=== PATIENT | male | born 1950 | race Caucasian/White ===

== ENCOUNTER → 2016-06-03 12:13 | Day surgery (SDC) | payer OTHER ==
[~2016-06-03 12:13] MED LIST: Atropine 1MG/ML INJ* 1 ML VIAL ONE; Buffered Lidocaine 1% SYRIN* 3 ML/SYR SYRINGE INTRADERM ONE; Bupivacaine 0.25% SDV* 30 ML ONE; DiMENhydriNATE IV* 50 MG/ML VIAL IV PUSH PRN; EPHEDrine (Pressors)* 50 MG/ML VIAL ONE; HYDROcodone/ACETAMIN 5-325 MG* 1 TAB ONE; HYDROcodone/ACETAMIN 5-325 MG* 1 TAB PO PRN; Lidocaine 2% PF * 5 ML VIAL ONE; Propofol* 10 MG/ML 20 ML BTL IV PUSH ONE; ceFAZolin 2 GM PREMIX(*) 2 GM/50 ML BAG IVPB ONE; fentaNYL* 50 MCG/ML 2 ML VIAL (100 MCG VIAL) IV PRN; fentaNYL* 50 MCG/ML 2 ML VIAL (100 MCG VIAL) ONE
[2016-06-03 17:14] VITALS: BP 123/77
--- NOTE | 2016-06-09 00:47 | OP ---
DATE OF OPERATION: 06/03/16 - [facility] DATE OF : 54 SURGEON: Nav Persaud MD SUPERVISOR FEED HOUSE: [facility] ANESTHESIOLOGIST: Dr. Maradiaga. ANESTHESIA: General. PRE-OP DIAGNOSES: 1. Symptomatic radiocapitellar degenerative joint disease with regrowth of the proximal radius at many years after prior radial head resection in a patient who now has an ulnar humeral fusion, left side. 2. Possible retained and symptomatic screw from the patient's ulnar humeral fusion, left side. POST-OP DIAGNOSES: 1. Symptomatic radiocapitellar degenerative joint disease with regrowth of the proximal radius at many years after prior radial head resection in a patient who now has an ulnar humeral fusion, left side. 2. Possible retained and symptomatic screw from the patient's ulnar humeral fusion, left side. OPERATIVE PROCEDURE: Left revision radial head excision. 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 He has undergone multiple surgeries including many, many years ago a left radial head excision. Several months ago, I fused the left ulnohumeral joint. He has been doing well in regards to that, but he has developed very painful click with pronation and supination. X-rays showed regrowth of the left radial head and looked line impingement at the radiocapitellar joint at the proximal and radial ulnar joints. I discussed with them that there was a chance of one of the screws from the fusion was also prominent and that was contributing to the click. We talked about risks and benefits including risk of persistent pain and clicking despite doing the surgery. He understood this but wished to proceed. ESTIMATED BLOOD LOSS: 5 mL. COMPLICATIONS: None. FINDINGS: As expected but on fluoroscopic imaging, no prominent screws were noted. DESCRIPTION OF PROCEDURE: Henry was seen in the preoperative holding area and the correct side and site were identified. He was then brought back to the operating room where he was placed supine and arm table was used. Anesthesia was induced. The arm was prepped and draped in the usual fashion and formal time -out was performed. The patient's prior lateral elbow incision was utilized. Dissection was carried down to the fascia. Full-thickness flaps were raised off the fascia. I then released the fascia and split the musculature just in the line anterior to the lateral epicondyle and extending down towards the radial shaft. The radial shaft was subluxated anteriorly. The anatomy was somewhat distorted. It took quite some time but I was able to dissect through the scar tissue and musculature taking care to make sure damage the posterior interosseous nerve. I then released the subfascial layer and was left to the annular ligament. Ultimately, I was able to identify the radial shaft after excising quite a bit of scar tissue in the area of that radiocapitellar joint. There was a large amount of bony regrowth at the area of the prior radial head resection. This was all subluxated anteriorly and was grinding on the anterior aspect of what was left of the capitellum and end of the distal humerus. At this point, I placed some Hohmann retractors about the radial shaft and then used a sagittal saw to perform the revision radial head excision. I then went ahead and pronated and supinated the arm. There was still just little bit of a click and so I took up another 2 mm proximal radius. At this point, I was very satisfied with the radial head excision; and, given the extensive amount of scar tissue, I did not want to extend this more distally as I was concerned that I would not be able to adequately visualize and protect the posterior interosseous nerve. I then took the mini C-arm and fluoroscopically imaged the elbow in multiple planes. I could not identify any screws. It seemed like they were prominent and will be a source of impingement with the remaining proximal radial shaft. I therefore irrigated the wound. I closed the deeper layers with some 0 Vicryl suture. The skin was approximated with some 3-0 Polysorb suture and closed with some 4-0 nylon suture. The wound was then dressed with Xeroform, 4x4s, sterile Webril, and Kristopher bandage. He was then awoken up and taken to the recovery room in stable condition. [id number]/[facility] #: [id number] JADEN
== END | disposition home or self-care (01) ==
LOC: OREAST 12:13
PROVIDERS: ATTEND Orthopaedic Surgery Hand Surgery
DX: M19.122 Post-traumatic osteoarthritis, left elbow (principal); I10 Essential (primary) hypertension
CPT/HCPCS: 88304; 88311; J0461; J0690; J2704; J3010

== ENCOUNTER 2016-08-19 14:30 | Emergency (ER) | payer OTHER ==
[2016-08-19 14:50] VITALS: BP 147/93
[2016-08-19] MEDS ORDERED: Ketorolac INJ* 60 MG/2 ML VIAL ONE (15:35)
[2016-08-19] MEDS ORDERED: Ketorolac INJ* 60 MG/2 ML VIAL IM ONE (15:39)
--- NOTE | 2016-08-19 16:39 | ED ---
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 Patient was walking when his knee gave out causing him to fall and land on his left arm. Patient has had multiple surgeries on his elbow and just underwent an elbow fusion [address] Persaud. Patient's left elbow is fused at 65 degrees and has limited ROM due to this. Patient complains of some numbness in his hand and pain in his left forearm and elbow. Patient states his arm was "flopping around". Arm is wrapped with wood splint and kerlex. EMS was called however patient drove himself in. Is able to move his fingers. Denies any laceration or open fracture. Denies hitting his head, LOC or any other injuries. Admits to some swelling. Did not hit head and no LOC. - History of Current Complaint Chief Complaint: EDExtremityUpper Stated Complaint: POSSIBLE BROKEN ARM Time Seen by Provider: 08/19/16 15:18 Hx Obtained From: Patient Mechanism Of Injury: Fall From A Standing Position Onset/Duration: Started Hours Ago, Traumatic Timing: Constant Severity Initially: Moderate Severity Currently: Moderate Pain Location: Elbow - left, Forearm Character: Aching, Throbbing Aggravating Factor(s): Movement, Lifting Alleviating Factor(s): Rest, Other - splint Associated Signs & Symptoms: Positive: Swelling Related History: Dominant Hand Right, Dominant Hand Left - before injuries and surgeries, now has become right handed - Allergies/Home Medications Allergies/Adverse Reactions: Allergies Allergy/AdvReac Type Severity Reaction Status Date / Time No Known Allergies Allergy Verified 05/27/16 11:58 PMH/Surg Hx/FS Hx/Imm Hx Endocrine/Hematology History: Reports: Hx Anemia Cardiovascular History: Denies: Hx Hypertension Respiratory History: Reports: Hx Pulmonary 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- FILTER PLACED RIGHT [id number] SINCE GI History: Reports: Hx Gastroesophageal Reflux Disease Musculoskeletal History: Reports: Hx Arthritis - LEFT SHOULDER, ELBOW- RIGHT ARM , KNEES ANKLES, NECK Sensory History: Reports: Hx Contacts or Glasses - READING GLASSES Denies: Hx Hearing Aid Opthamlomology History: Reports: Hx Contacts or Glasses - READING GLASSES Psychiatric History: Reports: Hx Anxiety, Hx Depression - ON MEDICATION FOR, Other Psychiatric Issues/Disorders - HX OF NERVOUS BREAKDOWN 12 YEARS AGO - Surgical History Surgery Procedure, Year, and Place: [id number] ELBOW SURGERIES X 27, LAST ONE [facility]. 2014-RIGHT KNEE REPLACED-[place]. 2013-LEFT KNEE REPLACED- [facility]. 1993-LEFT ANKLE TENDON REPAIR, [place]. 2002 GASTRIC BYPASS, [place]. UMBILICAL HERNIA REPAIR X 5. TONSILLECTOMY A [facility],. 2002 LAPAROSCOPIC CHOLECYSTECTOMY, [place]. 2016 LEFT ELBOW FUSION, [facility] Hx Anesthesia Reactions: No - Immunization History Immunizations Up to Date: Yes Infectious Disease History: Denies: Traveled Outside the [place] in Last 30 Days - Family History Known Family History: Positive: None - Social History Alcohol Use: None Substance Use Type: Reports: None Smoking Status (MU): Never Smoked Tobacco Review of Systems Constitutional: Negative Cardiovascular: Negative Respiratory: Negative Positive: Arthralgia, Myalgia, Decreased ROM, Edema - left arm Skin: Negative Neurological: Negative Psychological: Normal All Other Systems Reviewed And Are Negative: Yes Physical Exam Triage Information Reviewed: Yes Vital Signs On Initial Exam: Initial Vitals Temp Pulse Resp BP Pulse Ox 97.9 F 69 18 147/93 97 08/19/16 14:45 08/19/16 14:45 08/19/16 14:45 08/19/16 14:45 08/19/16 14:45 Vital Signs Reviewed: Yes Appearance: Positive: Well-Appearing, Well-Nourished, Pain Distress - moderate when moving left arm Skin: Positive: Warm, Skin Color Reflects Adequate Perfusion, Dry, Other - edema noted at left elbow and proximal forearm, no open wounds or ecchymosis noted.. Negative: Mass @ Head/Face: Positive: Normal Head/Face Inspection Eyes: Positive: Normal, EOMI, [place], Conjunctiva Clear ENT: Positive: Normal ENT inspection, Hearing grossly normal Neck: Positive: Supple, Nontender, No Lymphadenopathy Respiratory/Lung Sounds: Positive: Clear to Auscultation, Breath Sounds Present Cardiovascular: Positive: Normal, RRR, Pulses are Symmetrical in both Upper and Lower Extremities - 2+ radial bilateral Bowel Sounds: Positive: Present Musculoskeletal: Positive: Limited @ - ROM left arm due to fusion and present injury at elbow and wrist. can only keep arm flexed at 65 degrees. no internal or external rotation due to patient's chronic position of fusion. Full ROM of fingers., Pain @ - left elbow and proximal lef forearm, along withe edema, Edema Left - at elbow/ proximal forearm, posterior Neurological: Positive: Normal, Sensory/Motor Intact - sensation decreased when compared to right but patient is able to feel, ROM normal of fingers, Alert, Oriented to Person Place, Time, CN Intact II-III, Reflexes Intact - left arm reflexed not tested, NV Bundle Intact Distally, Normal Gait Psychiatric: Positive: Normal Procedures - Splinting Location: left arm Hand-Made Type: plaster Splint: posterior Pre-Proc Neuro Vasc Exam: normal Post-Proc Neuro Vasc Exam: normal Diagnostics - Vital Signs Vital Signs Temp Pulse Resp BP Pulse Ox 08/19/16 14:45 97.9 F 69 18 147/93 97 - Laboratory Lab Statement: Any lab studies that have been ordered have been reviewed, and results considered in the medical decision making process. - Radiology left forearm Xray Interpretation: No Acute Changes - OSTEOPENIA. POST SURGICAL CHANGE. NO ACUTE OSSEOUS INJURY. IF SYMPTOMS PERSIST, RECOMMEND REPEAT IMAGING Radiology Interpretation Completed By: Radiologist left humerous Xray Interpretation: Positive (See Comments) - THERE HAS BEEN INTERVAL DEVELOPMENT OF A PERIPROSTHETIC FRACTURE OF THE PROXIMAL LEFT ULNA. Radiology Interpretation Completed By: Radiologist left elbow Xray Interpretation: Positive (See Comments) - THERE HAS BEEN INTERVAL DEVELOPMENT OF A PERIPROSTHETIC FRACTURE OF THE PROXIMAL LEFT ULNA. Radiology Interpretation Completed By: Radiologist Re-Evaluation - Re-Evaluation First Eval Re-Evaluation Time: 16:30 Change: Improved - had relief from toradol Course/Dx - Course Course Of Treatment: X-ray of left arm obtained and positive for fracture of proximal ulna. Fusion intact. Patient given toradol for pain management. Spoke with Dr poon at 4:49/5:05 who stated to splint and patient will be seen in office tomorrow for further evaluation. Posterior and sugar tong splint applied without complication. Patient denied sling due to position of arm. Due to fusion of elbow patient is unable to rotate forearm and flex past 65 degrees. Splint was applied in this position. Aware of worsening signs and symptoms and to return if splint becomes to tight. Elevate, ibuprofen and follow up. - Diagnoses Differential Diagnosis/HQI/PQRI: Positive: Fracture (Closed), Strain, Sprain, Other - surgical fusion complication after fall Provider Diagnoses: Fracture of left proximal ulna - Physician Notifications Discussed Care Of Patient With: Dr Poon Time Discussed With Above Provider: 17:00 Instructed by Provider To: Have Pt Call For Appt. - will be seen tomorrow in office 08/19/16. Splint until then Discharge - Discharge Plan Condition: Stable Disposition: HOME Patient Education Materials: Arm Fracture in Adults (ED) Referrals: Gasper IGLESIAS,Ronald Goddard [Primary Care Provider] - Jasvir Poon MD [Medical Doctor] - Additional Instructions: Take ibuprofen for pain. Elevate your arm to decrease swelling. If pain increases or worsen or splint becomes to tight please return to ED. Follow up with orthopedics tomorrow morning.
--- NOTE | 2016-08-19 17:07 | RAD ---
HISTORY: Fall, injury, recent fusion COMPARISONS: June 15, 2016 VIEWS: 2, Frontal internal rotation and external rotation views of the left humerus FINDINGS: BONE DENSITY: There is diffuse osteopenia. BONES: The patient is status post internal fixation of the distal humerus and proximal ulna. There is no hardware failure or osteolysis. JOINTS: There is osteoarthritis of the AC joint. The patient is status post fusion across the elbow ALIGNMENT: There is no dislocation. SOFT TISSUES: Unremarkable. OTHER FINDINGS: None. IMPRESSION: OSTEOPENIA. POST SURGICAL CHANGE. NO ACUTE OSSEOUS INJURY. IF SYMPTOMS PERSIST, RECOMMEND REPEAT IMAGING
--- NOTE | 2016-08-19 17:09 | RAD ---
HISTORY: Fall, injury, left forearm, recent fusion COMPARISONS: June 07, 2016 VIEWS: 2, Frontal and lateral views of the left forearm FINDINGS: BONE DENSITY: There is diffuse osteopenia. BONES: The patient is status post fusion across the elbow. There is a periprosthetic fracture of the proximal ulnar diaphysis that is new compared to the previous examination with minimal radial displacement JOINTS: The patient is status post across the elbow. 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 SOFT TISSUES: Unremarkable. OTHER FINDINGS: None. IMPRESSION: THERE HAS BEEN INTERVAL DEVELOPMENT OF A PERIPROSTHETIC FRACTURE OF THE PROXIMAL LEFT ULNA
--- NOTE | 2016-08-19 17:10 | RAD ---
HISTORY: Status post left elbow effusion, fall and injury COMPARISONS: June 15, 2016 VIEWS: 3, Frontal, lateral, and oblique views of the left elbow FINDINGS: BONE DENSITY: There is diffuse osteopenia. BONES: The patient is status post fusion across the elbow with a fixation plate and screws. There has been interval development of a periprosthetic fracture of the proximal left ulna with anterior and radial displacement JOINTS: There is no arthropathy. ALIGNMENT: There is no dislocation. SOFT TISSUES: Unremarkable. OTHER FINDINGS: None. IMPRESSION: THERE HAS BEEN INTERVAL DEVELOPMENT OF A PERIPROSTHETIC FRACTURE OF THE PROXIMAL LEFT ULNA.
== END 2016-08-19 18:32 | disposition home or self-care (01) ==
LOC: ED 14:30
DX: S52.002A Unspecified fracture of upper end of left ulna, initial encounter for closed fracture (principal); W19.XXXA Unspecified fall, initial encounter; Y93.9 Activity, unspecified; Y92.9 Unspecified place or not applicable
CPT/HCPCS: 96372; 99282; J1885

== ENCOUNTER 2017-05-15 16:25 | Observation (INO) | payer OTHER ==
--- NOTE | 2017-05-15 17:20 | RAD ---
INDICATION: Headaches. Blurred vision COMPARISON: None TECHNIQUE: Noncontrast axial source images were acquired from the skull base to the vertex. FINDINGS: Ventricles/sulci: The ventricles and cisterns are normal in size and configuration for age. Brain parenchyma: There is no focal parenchymal finding, evidence of intracranial mass, or intracranial mass effect. Intracranial hemorrhage:None. Extra-axial spaces: There are no abnormal extra axial fluid collections or evidence of extra-axial mass. Calvarium: There is no calvarial fracture or other calvarial abnormality. Scalp: There is no evidence of scalp or extracalvarial soft tissue abnormality. Paranasal sinuses/mastoid: There is mucosal thickening with short air-fluid level in a right sphenoid air cell and there is mild right ethmoid sinus. Compressive thickening The remaining paranasal sinuses and mastoid air cells are clear. Other: None. IMPRESSION: No acute intracranial findings. Sinusitis with air-fluid level in one of the sphenoid air cells
[2017-05-15 17:48] LABS: EGFR Non-African American 88.3 (>60); Hematocrit 41 % (42-52); Hemoglobin 13.5 g/dl (14.0-18.0); Mean Corpuscular HGB Conc 33 g/dl (31-36); Mean Corpuscular Hemoglobin 30 pg (27-31); Mean Corpuscular Volume 89 fL (80-94); Red Blood Count 4.58 10^6/ul (4.0-5.4); Red Cell Distribution Width 14 % (10.5-15); White Blood Count 4.5 10^3/ul (3.5-10.8)
[2017-05-15 17:49] LABS: ABS Basophils 0 10^3/ul (0-0.2); ABS Eosinophils 0.2 10^3/ul (0-0.6); ABS Lymphocytes 1.6 10^3/ul (1.0-4.8); ABS Monocytes 0.4 10^3/ul (0-0.8); ABS Neutrophils 2.1 10^3/ul (1.5-7.7); ABS Nucleated RBC 0 10^3/ul; Eosinophil % 4.6 % (0-6); Lymphocyte % 36.8 % (25-47); Nucleated Red Blood Cells % 0
[2017-05-15 18:14] LABS: Platelet Count 180 10^3/ul (150-450)
[2017-05-15 18:25] LABS: INR 0.82 (0.77-1.02)
[2017-05-15] MEDS ORDERED: Iohexol 350* (CONTRAST) 500 ML MDV IV ONE (19:52)
--- NOTE | 2017-05-15 20:47 | RAD ---
INDICATION: Headaches. Visual changes. Acute and chronic sinusitis. COMPARISON: CT brain same day TECHNIQUE: Axial source images were acquired with coronal and sagittal reconstructions. CT angiographic technique was utilized with injection of 80 mL Omnipaque 350. Limited venous phase imaging was performed as well. FINDINGS: Aortic arch: There are no CT angiogram abnormalities of the arch or the great vessels arising from the arch. There are underlying atherosclerotic changes. There is vessel tortuosity with elongation of the ascending thoracic Right carotid: The common carotid artery, carotid bifurcation, extracranial portions of the internal carotid artery, carotid artery at the skull base, carotid siphon, and carotid termination appear widely patent. Left carotid:The common carotid artery, carotid bifurcation, extracranial portions of the internal carotid artery, carotid artery at the skull base, carotid siphon, and carotid termination appear widely patent. There is moderate plaque at the bifurcation but no significant stenosis. Right middle and anterior cerebral arteries: There are no CT angiographic abnormalities of the middle or anterior cerebral arteries. Left middle and anterior cerebral arteries: There are no CT angiographic abnormalities of the middle or anterior cerebral arteries Right vertebral: The CT angiographic appearance of the vertebral artery is normal. Left vertebral: The CT angiographic appearance of the vertebral artery is normal. Basilar artery: The basilar artery and basilar tip appear normal. Posterior cerebral arteries: The distal distribution of the right and left posterior cerebral arteries is normal. [place]: The CT angiographic appearance of the [place] is intact. Other: Limited venous phase imaging demonstrates no intraluminal defect within the dural sinuses Source images show no evidence of mass or adenopathy within the neck. There are no focal brain parenchymal abnormalities or abnormal areas of enhancement. There is again evidence of acute and chronic sinusitis with an air-fluid level in the right sphenoid air cell. IMPRESSION: NO CT EVIDENCE OF ANEURYSM, SIGNIFICANT STENOSIS, BRANCH OCCLUSION. ACUTE AND CHRONIC SINUSITIS. NO IDENTIFIABLE DURAL SINUS ABNORMALITY. CPT II Codes: 3100F PQRS
[2017-05-15] MEDS ORDERED: Docusate CAP* 100 MG PO PRN (21:33)
[2017-05-15] MEDS ORDERED: Al Hydrox/Mg Hydrox/Simet LIQ* 30 ML UDC PO PRN (21:33)
[2017-05-15] MEDS ORDERED: Acetaminophen TAB* 325 MG PO PRN (21:33)
[2017-05-15] MEDS ORDERED: Senna TAB PO PRN (21:33)
[2017-05-15] MEDS ORDERED: Ondansetron INJ* 2 MG/ML VIAL IV PRN (21:33)
[2017-05-15] MEDS ORDERED: traZODone TAB* 100 MG PO SCH (22:00)
[2017-05-15] MEDS: Heparin VIAL(*) 5000 UNITS/ML VIAL (FIVE THOUSAND) SUBCUT SCH (23:12)
[2017-05-15] MEDS ORDERED: oxyCODONE TAB* 5 MG TAB PO PRN (23:13)
[2017-05-15] MEDS: clonazePAM TAB(*) 0.5 MG PO SCH (23:24)
--- NOTE | 2017-05-16 00:51 | HP ---
CC: Dr. Ronald Jackman at [facility] in [place], [place] * HISTORY AND PHYSICAL: DATE OF ADMISSION: 05/15/17 TIME OF EVALUATION: 2099 CHIEF COMPLAINT: Vision changes. HISTORY OF PRESENT ILLNESS: This is a 66-year-old male with past medical history of hypertension who presented to the emergency room with acute onset of vision changes. The patient states around 9 o'clock this morning, he had a blackout vision which lasted for about 45 seconds and then he had tunnel vision that lasted for about 2 to 3 minutes. His was with him, who was very concerned. Because of symptoms improved, they decided not to do anything about it, but then it occurred about 3 times today. He also had an associated posterior headache with it. On my encounter, his vision changes have resolved and he is back to his normal vision, but he still continues to have posterior headache. He states he gets a bout of headache 1 to 2 times a week that is severe, but not as bad as the migraine in the posterior region. He also states he has these falls all the time where he is not aware he is going to fall and he thinks he passes out. He wakes up, he states he is fine, but he feels a little spacey afterwards and he continues on doing the same. When asked if he has seen his primary care physician regarding this, he states no, it has been going on for so long, he has not really thought anything of it. I spoke to his as well to confirm his medication list and she states that he does fall a lot, he does not always her when he does, but he does complain and he gets dizzy before he falls. He often holds his head down and he walks like he is wobbling all around when this happens. The patient states he does have short- term memory loss that he attributes to being age 67. He denies any speech changes. His did not notice that either. No confusion, no focal weakness , numbness, or tingling. Otherwise, remaining review of systems is negative. In the emergency room, the patient had labs and imaging, and was referred to the hospitalist service for further evaluation. PAST MEDICAL HISTORY: 1. Hypertension. 2. Short-term memory loss. 3. History of PE with a filter in place, not on anticoagulation. 4. Arthritis. 5. Bilateral knee replacements. 6. Significant remote injury to his left arm that has caused a fused left arm after an accident requiring the 29 surgeries for 28 fractures. 7. Insomnia. MEDICATIONS: 1. Amlodipine 2.5 mg p.o. daily. 2. Clonazepam 0.5 mg p.o. b.i.d. 3. Vitamin B12 of 1000 mcg p.o. b.i.d. 4. Magnesium oxide 800 mg p.o. q.h.s. 5. Vitamin D daily. 6. Trazodone 100 mg at bedtime. 7. Multivitamin. 8. Aspirin 81 mg daily. 9. Gabapentin 600 mg p.o. b.i.d. 10. Cymbalta 60 mg daily. ALLERGIES: No known drug allergies. FAMILY HISTORY: Mother when he was a baby from breast cancer. Father from COPD. No known history of stroke, but he is not sure. SOCIAL HISTORY: The patient lives at home with his who is his healthcare proxy, phone number is [phone]. 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 No history of smoking, alcohol, or illicit drug use. 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 CODE STATUS: Full code. PHYSICAL EXAMINATION GENERAL: No acute distress, resting comfortably. VITAL SIGNS: Temperature 98.4, pulse rate 60, respiratory rate 17, oxygen saturation 97% on room air, blood pressure 169/108. HEENT: Head normocephalic. Pupils are equal and reactive. Anicteric. Extraocular muscles intact. Oropharynx: Mucous membranes moist. NECK: Supple. No lymphadenopathy. RESPIRATORY: Diminished breath sounds. No wheezes, rhonchi, or rales. CARDIAC: Regular rate and rhythm. Soft systolic murmur heard throughout. ABDOMEN: Soft, nontender, and nondistended. EXTREMITIES: No clubbing, cyanosis, or edema. +1 DPs. NEUROLOGIC: Alert and oriented x3. Cranial nerves II through XII intact. The patient with a fused left upper extremity. Negative pronator drift. The patient with difficulty with his [id number]-mz-cvor in the left lower extremity. Symmetric and equal strength. LABORATORY DATA: White count 4.5, hemoglobin 13.5, hematocrit 41, and platelets 180,000. INR 0.82. Sodium 137, potassium 4.1, chloride 104, bicarbonate 28, BUN 12, creatinine 0.87, lactic acid 0.9, alkaline phosphatase 131, troponin 0.01. RADIOGRAPHIC DATA: Head CT, no acute intracranial findings, signs of air-fluid level in one of the sphenoid air cells. Head CTA, no CT evidence of aneurysm, significant stenosis, branch occlusion, jhxsw-[id number] sinusitis. No identifiable dural sinus abnormality. EKG, normal sinus rhythm with prolonged CO interval. ASSESSMENT: This is a 66-year-old male with past medical history of hypertension, short-term memory loss, who presents to the emergency room with acute onset of vision loss, who has now returned with persistent headaches. 1. Acute vision loss, appears to be transient binocular visual loss, concerning for a posterior circulation infarct. Also, concerning are the falls that he has that may or may not be preceded by dizzy episodes. I did speak with Dr. Gagnon who recommended further workup for posterior circulation syndrome. His blood pressures are creeping up, going up with a more elevated diastolic pressure as well, could be pressure related contributing to his symptoms. Plan: We will admit him for observation. Place him on telemetry with neuro checks. We will obtain an MRI, an echocardiogram and lipid panel. We will continue him on baby aspirin per Dr. Gagnon's recommendation. We will continue his amlodipine in the setting of his climbing blood pressures and monitor these closely. Follow up with Neurology's recommendations in the morning for any further workup. We will obtain his PT eval for home safety eval. Chronic Medical Problems: 1. Hypertension as mentioned. Continue his amlodipine 2.5 mg. 3. Insomnia. Continue his trazodone. We will also continue his clonazepam. 4. Arthritis/neuropathy. Continue his gabapentin and Cymbalta. 5. Fluids, electrolytes, and nutrition. Place him on a heart healthy diet. 6. DVT prophylaxis. The patient scores a moderate risk. We will place him on heparin subcu t.i.d. 7. Code status. Full code. TIME SPENT: Greater than 70 minutes spent doing history and physical, more than half time spent with direct patient contact. [id number] #: [id number] JADEN
[2017-05-16] MEDS: Heparin VIAL(*) 5000 UNITS/ML VIAL (FIVE THOUSAND) SUBCUT SCH ×2 (05:51→15:49)
[2017-05-16] MEDS ORDERED: Perflutren Lipid Microsphere* 3 ML VIAL ONE (08:05)
[2017-05-16] MEDS: clonazePAM TAB(*) 0.5 MG PO SCH (08:41)
[2017-05-16] MEDS ORDERED: Aspirin EC Low Dose* 81 MG TAB.EC PO SCH (09:00)
[2017-05-16] MEDS ORDERED: Gabapentin CAP(*) 300 MG PO SCH (09:00)
[2017-05-16] MEDS ORDERED: Magnesium Oxide TAB* 400 MG PO SCH (09:00)
[2017-05-16] MEDS ORDERED: amLODIPine TAB* 5 MG PO SCH (09:00)
[2017-05-16] MEDS ORDERED: DULoxetine DR CAP* 60 MG CAP.DR PO SCH (09:00)
--- NOTE | 2017-05-16 13:15 | RAD ---
HISTORY: Rule out stroke COMPARISONS: Head CT dated May 15, 2017 TECHNIQUE: The following sequences were obtained of the head: Sagittal T1-weighted images, axial T2-weighted images, axial FLAIR images, axial susceptibility weighted images, axial T1-weighted images. Additionally, axial diffusion-weighted images were obtained with calculated apparent diffusion coefficients. FINDINGS: HEMORRHAGE/INFARCT: There is no hemorrhage or acute infarct. MASSES/SHIFT: There is no mass or shift. EXTRA-AXIAL SPACES/MENINGES: There are no extra-axial fluid collections. SULCI AND VENTRICLES: The sulci and ventricles are normal in size and position for the patient's stated age. CEREBRUM: There are no focal parenchymal abnormalities. BRAINSTEM: There are no focal parenchymal abnormalities. CEREBELLUM: There are no focal parenchymal abnormalities. The cerebellar tonsils are normal in size and position. SELLA: The sella is normal. PINEAL: The pineal region is clear. CP ANGLE/TEMPORAL BONES: The labyrinthine structures are grossly normal. VESSELS: Normal flow-voids are noted within the visualized vertebral vasculature. DIFFUSION ABNORMALITIES: There are no diffusion abnormalities. PARANASAL SINUSES/MASTOIDS: There is mucosal thickening of ethmoid air cells on the right. ORBITS: The orbits are unremarkable. BONES AND SOFT TISSUE: No bone or soft tissue abnormalities are noted. OTHER: None IMPRESSION: UNREMARKABLE MRI OF THE BRAIN. NO RESTRICTED DIFFUSION TO SUGGEST ACUTE INFARCT.
--- NOTE | 2017-05-16 16:44 | ECHO ---
Patient: MIN LIRA [facility] Rec#: [id number] : 1950 Date: 05/16/2017 Age: 66y Height: 180.34 cm / 71.0 in Weight: 112.04 kg / 246.9 lbs Sex: M BSA: 2.31 Room#: [facility] Admit Date#: 05/15/2017 Type: Inpatient Referring: Shayy Cottrell Reading: Satinder Cabello MD Custodial Aide: Rylee MolinaRDCS,RDMS Transthoracic Echocardiogram Indication: Syncope BP: 131/79 HR: 50 Rhythm: Bradycardia Findings History: HTN, PE Technical Comments: The study quality is fair. Left Ventricle: The left ventricular chamber size is normal. Mild concentric left ventricular hypertrophy is observed. Left ventricular systolic function is at the lower limits of normal. The estimated ejection fraction is 50-55%. The left ventricular diastolic filling pattern is consistent with pseudonormalization. Left Atrium: The left atrium is mildly dilated. Right Ventricle: The right ventricular chamber size and systolic function are within normal limits. The right ventricle wall thickness is mildly increased. Right Atrium: The right atrium is mildly dilated. A prominent chiari network is noted in the right atrium. Aortic Valve: The aortic valve is trileaflet. Systolic excursion of the aortic valve is normal. There is a trace of aortic regurgitation. There is no evidence of aortic stenosis. Mitral Valve: The mitral valve leaflets are mildly thickened. There is a trace of mitral regurgitation. There is no evidence of mitral stenosis. Tricuspid Valve: The tricuspid valve leaflets are normal. There is trace tricuspid regurgitation. Pulmonic Valve: There is no evidence of pulmonic valve thickening. There is a trace pulmonic regurgitation. Pericardium: There is no significant pericardial effusion. Aorta: The aortic root appears normal. There is no dilatation of the aortic arch. Pulmonary Artery: The main pulmonary artery appears normal. Venous: The inferior vena cava is not visualized. Contrast: Definity was used to optimize study. A total of 5 ml was used Conclusions Mild concentric left ventricular hypertrophy is observed. Left ventricular systolic function is at the lower limits of normal. The estimated ejection fraction is 50-55%. The right ventricular chamber size and systolic function are within normal limits. There is a trace of aortic regurgitation. There is a trace of mitral regurgitation. There is trace tricuspid regurgitation. There is no significant pericardial effusion. Measurements Name Value Normal Range RVIDd (AP) 2D 3.5 cm (0.9 - 2.6) RVDdMajor (2D) 4.3 cm (2.2 - 4.4) RAd ISD 4CH 5.1 cm (3.4 - 4.9) RA (A4C)W 4.8 cm (2.9 - 4.6) IVSd (2D) 1.3 cm (0.6 - 1) LVPWd (2D) 1.1 cm (0.6 - 1) LVIDd (2D) 4.8 cm (3.6 - 5.4) LVIDs (2D) 3.5 cm - LV FS (2D) 27 % (25 - 45) Aortic Annulus 2.3 cm (1.4 - 2.6) Ao root diameter (2D) 3.4 cm (2.1 - 3.5) Ascending Ao 3.4 cm (2.1 - 3.4) Aortic arch 3.3 cm (1.8 - 3.4) LA dimension (AP) 2D 4.2 cm (2.3 - 3.8) LAd ISD 4CH 5.4 cm (2.9 - 5.3) LA ISD 4CH W 4.9 cm (2.5 - 4.5) Name Value Normal Range LA ESV SP 4CH (A/L) 81.29 ml - LA ESV SP 2CH (A/L) 99.34 ml - LA ESV BP (A/L) 91.3 ml - LA ESV BP (A/L) index 40 ml/m2 - LA ESV SP 4CH (MOD) 75.09 ml - LA ESV SP 2CH (MOD) 94.38 ml - LV EDV SP 4CH (MOD) 133.31 ml - LV ESV SP 4CH (MOD) 68.16 ml - EF SP 4CH (MOD) 48.87 % - LV EDV SP 2CH (MOD) 135.19 ml - LV ESV SP 2CH (MOD) 85.73 ml - EF SP 2CH (MOD) 36.59 % - LV EDV BP 135.53 ml - LV ESV BP 77.38 ml - BP EF (MOD) 43 % - Name Value Normal Range MV E-wave Vmax 0.7 m/sec - MV deceleration time 257 msec - MV A-wave Vmax 0.6 m/sec - MV E:A ratio 1.2 ratio - P. vein S-wave Vmax 0.4 m/sec - P. vein D-wave Vmax 0.3 m/sec - P. vein S:D Vmax ratio 1.1 ratio - P. vein A-wave duration 111 msec - LV septal e' Vmax 0.06 m/sec - LV lateral e' Vmax 0.07 m/sec - LV E:e' septal ratio 12 ratio - LV E:e' lateral ratio 10 ratio - Name Value Normal Range AV Vmax 1 m/sec - AV VTI 26 cm - AV peak gradient 4 mmHg - AV mean gradient 2.3 mmHg - LVOT Vmax 1 m/sec - LVOT VTI 25 cm - LVOT peak gradient 4 mmHg - LVOT mean gradient 1.7 mmHg - JUSTIN Vmax 0.5 m/sec - Name Value Normal Range TR Vmax 2.4 m/sec - TR peak gradient 23 mmHg - RAP 8 mmHg - RVSP 31 mmHg - Name Value Normal Range PV Vmax 0.8 m/sec - PV peak gradient 2.6 mmHg -
[2017-05-16 16:57] VITALS: BP 162/95
--- NOTE | 2017-05-17 00:22 | CONS ---
NEUROLOGY CONSULTATION: DATE OF CONSULT: 05/16/17 PRIMARY CARE PHYSICIAN: Dr. Ronald Jackman at [facility] in [place]. REQUESTING PHYSICIAN: Dr. Shayy Cottrell MD REASON FOR CONSULT: Sudden onset vision changes and headache. HISTORY OF PRESENT ILLNESS: Mr. Camilo is a 66-year-old man with a past history of hypertension, "nervous breakdown 15 years ago" as well as pulmonary embolism, no longer on anticoagulation, who presented to the emergency department yesterday after he had 3 episodes of binocular vision loss. The first episode occurred yesterday morning when he was standing having a conversion with someone and he reports suddenly his vision went completely black except for a small tunnel down the center of his vision of white light. This lasted 30 to 45 seconds and then he had gradual return of his vision, first very fuzzy and then gradually becoming more clear over approximately 2 to 3 minutes. With this vision loss, he had a posterior headache, which he describes as quite intense and sharp in nature. He is not sure whether he felt lightheaded or any other symptoms at the time of his vision loss because he said he was focused only on the fact that he was unable to see. Later on in the day, he then experienced 2 additional episodes similar to this, though they did not last as long and at that point, his was able to convince him to come to the emergency room for further evaluation. He does admit to a past history of headaches, but they are not as severe as this one and not located in the same area. His other headaches tended to be more frontally located or at the vertex. He does not endorse any vision changes prior to these headaches. He has not had any further episodes since he has been here and does not have a headache any longer. He was noted to be hypertensive shortly after his arrival to the emergency department. Otherwise, he also has a history of falls, which he is not really able to give much of a history surrounding. His has witnessed some of these falls and says he just appears to lose his balance and he falls down. He does not lose consciousness as far as she is aware. He is not able to say whether he feels dizzy or vertiginous prior to these falls. He does have a history of peripheral neuropathy, which he says is of unclear etiology, but he relates a past history of hyperglycemia, though never took medications for diabetes and after significant amount of weight loss, he no longer has difficulty with his sugar. He also has a h/o B12 deficiency. Dr. Gagnon was contacted about this patient last evening and had recommended a CT angiogram of the head and neck as well as checking inflammatory markers and rheumatologic markers. This morning, she spoke with Dr. Cottrell, who admitted the patient last evening and after further history was obtained, MRI scan of the brain was also suggested, all of which has been completed. The only other thing that has been significant overnight is that on telemetry, his heart rate has been noted to go down into the 40s and most of the time has remained in the 50s with a first-degree block noted. He is not on any medication which would cause bradycardia. He denies any cardiac symptoms such as chest pain or palpitations. PAST MEDICAL HISTORY: 1. Hypertension. 2. Short-term memory loss, recently reported. 3. History of pulmonary embolism, now with a filter in place, off anticoagulation for the last 10 years or so. 4. Arthritis. 5. Bilateral knee replacements. 6. History of depression/anxiety and describes a "nervous breakdown," which occurred after he witnessed a horrific accident as a [employer] worker. She describes that he was catatonic and this is when he experienced pulmonary emboli. 7. Insomnia. 8. Neuropathy. 9. B12 deficiency 10. History of lower back surgery HOME MEDICATIONS: 1. Amlodipine 2.5 mg daily. 2. Clonazepam 0.5 mg twice daily. 3. Vitamin B12 1000 mcg twice daily. 4. Magnesium oxide 800 mg at night. 5. Vitamin D. 6. Trazodone 100 mg at bedtime. 7. Multivitamin. 8. Aspirin 81 mg daily. 9. Gabapentin 600 mg twice daily. 10. Cymbalta 60 mg daily. ALLERGIES: No known drug allergies. FAMILY HISTORY: His mother from breast cancer when he was about 2 months old. He has a brother, who had breast cancer and a mastectomy. Two of his other brothers carry a gene for breast cancer and he is currently being tested, but does not know the result. His father had COPD. A brother reportedly had a brainstem stroke. SOCIAL HISTORY: He lives with his . 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 He is a never smoker and denies any alcohol or drug use. REVIEW OF SYSTEMS: Aside from the HPI, review of systems is negative. PHYSICAL EXAMINATION: Vital Signs: Temperature 98.1, blood pressure 148/91, heart rate 56, oxygen saturation 100% on room air. Of note, his highest blood pressure was 180/107 at 2130 last night. On general examination, the patient is a pleasant man, in no acute distress. His heart is in a regular rate rhythm with no murmurs, rubs, or gallops. Lungs are clear to auscultation bilaterally. There are no carotid bruits. His musculoskeletal exam is notable for a left arm which is fused in a flexed position across the elbow. This is related to a fracture back in the late 70s and he has had multiple surgeries on this extremity. There are multiple scars. He has some swelling in his right greater than left lower extremities. His skin is otherwise intact. On neurologic examination, he is fully awake, alert, and oriented. His speech is fluent without dysarthria or aphasia. He has good memory for his medical history and approximate dates of his family and own personal medical history. On cranial nerve exam, his pupils are equal, round, and reactive from 4 to 2 mm bilaterally. Versions are full without nystagmus. Castrejon are full to confrontation. Facial sensation and musculature is full and symmetric. Hearing is intact to finger rub on the right greater than left. The palate elevates symmetrically and the tongue is midline. On motor examination, the testing in his left upper extremity is limited secondary to the fusion and pain. His right upper and lower extremities have full strength. He had some apparent weakness in his left dorsiflexor, but there is also seemed to have some give away component to it. On sensory testing, sensation to pinprick was diminished in left arm compared to the right arm globally. In addition, he has some diminished pinprick in a patchy fashion in his left lower extremity, which did not follow any particular nerve distribution. Pinprick was intact in the right lower extremity. Vibration was diminished to 2 seconds in the left great toe, 5 seconds at the right great toe. Proprioception was intact in the right great toe and he had some difficulty with this in the left great toe. Reflexes are 2+ in the right upper extremity, not tested in the left upper extremity secondary to fusion and pain, 2+ in the knees and absent at the ankles. His toes are mute. [id number] is without ataxia. His gait with his walker is narrow-based and appears antalgic and he complains of pain in his left foot. DIAGNOSTIC STUDIES/LAB DATA: CBC shows hematocrit of 41, hemoglobin of 13.5. CMP is remarkable only for slightly elevated alkaline phosphatase of 131 and low protein of 6.1. His CRP was 3.7 and his sed rate was 10. Triglycerides 51 , total cholesterol 156, LDL 94, and HDL 51.7. Noncontrast brain CT was personally reviewed and was essentially normal study. MRI of the brain, which was also noncontrast was personally reviewed and showed no evidence of white matter changes, no evidence of acute or subacute stroke and no other significant abnormalities. CT angiogram of the head and neck showed no evidence for stenosis, in particular in the posterior circulation. There was no significant atherosclerotic disease. IMPRESSION: Henry Camilo is a 66-year-old man, who presented to the emergency room with transient vision loss x3 associated with a posterior headache. He was noted to be hypertensive after his arrival here, which has come down on its own without any specific intervention aside from continuing his blood pressure medication. His cardiac monitoring has been notable for bradycardia with a first- degree heart block noted and when he was sleeping at night, the nursing notes indicate that his heart rate has gone down to the 40s. His neurologic workup including MRI of the brain as well as CT angiogram of the head and neck has been unremarkable. There is no evidence for any fixed stenosis, which would put him at risk for vertebrobasilar insufficiency. Furthermore, there are no parenchymal abnormalities, which would explain his binocular vision loss. I question whether he is having some hypoperfusion possibly related to his bradycardia, if this becomes more severe at times and leads to a drop in his blood pressure. I have suggested orthostatic vital signs and talked with Dr. Man about outpatient longer term cardiac monitoring such as an event monitor. At this point, I do not think there is any further neurologic workup that needs to be done during this admission His falls and his balance issues may in part be related to his peripheral neuropathy. He has also some asymmetry in his exam and I question whether this is related to his back as he relates a past history of lower back surgery 20 years ago. Again, this is a problem, which could be worked up further as an outpatient. I think he should see Physical Therapy prior to his discharge for recommendations regarding his ambulation as I think it would be helpful for him to walk either with a cane or walker. Thank you for this consultation. [id number]/[facility] #: [id number] JADEN
--- NOTE | 2017-05-17 22:19 | DS ---
DISCHARGE SUMMARY: DATE OF ADMISSION: 05/15/17 DATE OF DISCHARGE: 05/16/17 ATTENDING PHYSICIAN: Zaida Man DO CONSULTING PHYSICIAN: Etta Grimm MD PRINCIPAL DISCHARGE DIAGNOSIS: Transient vision loss. SECONDARY DISCHARGE DIAGNOSES: 1. Hypertension. 2. Headache. 3. Remote history of PE. 4. Short-term memory loss. 5. Neuropathy. 6. Depression/anxiety. DISCHARGE MEDICATIONS: Please note that these are the same as admission medications. No changes wer e made on this admission. 1. Amlodipine 2.5 mg daily. 2. Clonazepam 0.5 mg b.i.d. p.r.n. 3. Vitamin B12 100 mcg daily. 4. Mag-Ox 800 mg daily. 5. Vitamin D daily. 6. Trazodone 100 mg q.h.s. 7. Aspirin 81 mg daily. 8. Gabapentin 600 mg b.i.d. 9. Cymbalta 60 mg daily. PHYSICAL EXAM ON THE DAY OF DISCHARGE: Vital Signs: Temperature 98.3, heart rate 59, respirations 2 0, pulse ox 100% on room air, blood pressure 156/95, orthostatic blood pressures 151/101 lying and 15 7/106 standing. General: Alert, anxious, well- appearing man, in no distress. HEENT: Pupils equal , round and reactive to light. No nystagmus. Extraocular muscles intact. Edentulous. Moist mucosa. Neck: No JVP. No adenopathy. Chest: Regular rate and rhythm. No murmurs. PMI nondisplaced. L ungs: Clear bilaterally. Abdomen: Soft, nontender, nondistended. No guarding or rebound. Extrem ities: No lower extremity edema. No rashes or ulcers. Neurologic: Strength 5+ throughout. Sensat ion intact. Coordination intact. Follows complex commands. Good short-term recall. HOSPITAL COURSE BY PROBLEM: 1. Transient vision loss. Mr. Camilo reported 3 episodes of vision loss for 30 seconds to 1 minut e in the day prior to admission. This was associated with a diffuse headache and he had never experi enced this before. He denied syncope or other episodes of blurry vision. On arrival to the emergenc y department, he had a brain CT, which showed no acute intracranial findings. Neurology was contacte d and recommended a CT angiogram, which showed no evidence of aneurysm, stenosis, or branch occlusion . He was admitted to the hospitalist service and was monitored on telemetry. During periods of slee p, his heart rate dropped to the 40s and was sinus rhythm. However, when he was awake, he had normal heart rates. Other than this, he had no other events on telemetry. He was evaluated by Neurology a gain the following morning. His vision loss had resolved and they recommended an echocardiogram and an MRI. The echocardiogram showed an EF of 50% to 55% with normal RV size and function. An MRI show ed an unremarkable study with no restricted diffusion to suggest an acute infarct. Based on this neg ative workup, he was discharged to home on 05/16/17 with followup with his primary care physician. Mari adams may benefit from outpatient cardiac monitoring and I will arrange this with Cardiology's office. 2. Hypertension. His blood pressure was controlled on his home medications and orthostatic vital si gns were negative. 3. Remote history of pulmonary embolism. This was provoked in the setting of a "nervous breakdown" during which he did not get off the couch for several weeks. He has been off anticoagulation for some years. 4. Neuropathy and falls. He was evaluated by physical therapy who found him to be independent with a rolling walker and safe to be discharged home to his trailer. 5. Followup needed. I encouraged him to follow up with his primary care physician and have requeste d Cardiology contact him to set up an appointment for outpatient cardiac event monitoring. [id number]/[facility] #: [id number]
== END 2017-05-16 18:28 | disposition home or self-care (01) ==
LOC: ED 16:25 → MEDTELE 21:33
PROVIDERS: ADMIT Pediatrics; ATTEND Internal Medicine
DX: H53.9 Unspecified visual disturbance (principal); R41.3 Other amnesia; I10 Essential (primary) hypertension; Z86.711 Personal history of pulmonary embolism; Z96.653 Presence of artificial knee joint, bilateral; G47.00 Insomnia, unspecified; Z79.82 Long term (current) use of aspirin; Z86.79 Personal history of other diseases of the circulatory system
CPT/HCPCS: 36415; 70450; 70496; 70498; 70551; 80053; 80061; 83605; 84484; 85025; 85610; 85652; 86140; 93005; 93306; 96374; 99284; A9270-GY; C8929; G0378; G8978-GP-CH; G8979-GP-CH; G8980-GP-CH; J1644; Q9967

== ENCOUNTER 2017-06-15 09:24 | Emergency (ER) | payer OTHER ==
[2017-06-15 10:11] LABS: ABS Basophils 0 10^3/ul (0-0.2); ABS Eosinophils 0.1 10^3/ul (0-0.6); ABS Monocytes 0.4 10^3/ul (0-0.8); ABS Neutrophils 1.9 10^3/ul (1.5-7.7); ABS Nucleated RBC 0 10^3/ul; Eosinophil % 4.2 % (0-6); Hematocrit 39 % (42-52); Hemoglobin 13.3 g/dl (14.0-18.0); Lymphocyte % 29.7 % (25-47); Mean Corpuscular HGB Conc 34 g/dl (31-36); Mean Corpuscular Hemoglobin 30 pg (27-31); Mean Corpuscular Volume 89 fL (80-94); Mean Platelet Volume 9 um3 (7.4-10.4); Nucleated Red Blood Cells % 0; Platelet Count 190 10^3/ul (150-450); Red Blood Count 4.42 10^6/ul (4.0-5.4); Red Cell Distribution Width 14 % (10.5-15); White Blood Count 3.5 10^3/ul (3.5-10.8)
--- NOTE | 2017-06-15 10:11 | RAD ---
Indication: Chest pain. Single frontal view of the chest performed at 0950 hours was reviewed. No prior study is available for comparison. No mediastinal shift is noted. Heart is of normal size and configuration. Lung guillermo appear clear. IMPRESSION: NO ACTIVE CARDIOPULMONARY DISEASE IS NOTED.
[2017-06-15 10:18] LABS: INR 0.86 (0.77-1.02)
[2017-06-15 10:27] LABS: EGFR Non-African American 100.2 (>60)
[2017-06-15] MEDS ORDERED: Iohexol 350* (CONTRAST) 500 ML MDV IV ONE (11:52)
--- NOTE | 2017-06-15 12:31 | RAD ---
HISTORY: Chest pain COMPARISONS: None TECHNIQUE: Multiple contiguous axial CT scans of the chest were obtained after the administration of nonionic intravenous contrast, timed to the pulmonary arterial phase of contrast enhancement.. Coronal and sagittal multiplanar reformations are also submitted for review. FINDINGS: NECK AND THYROID: The lower neck and thyroid are unremarkable. CHEST WALL: There is no lower cervical, axillary, or supraclavicular lymphadenopathy by size criteria. There is bilateral gynecomastia. HEART AND PERICARDIUM: The heart is unremarkable. AORTA AND PULMONARY VASCULATURE: There is no pulmonary arterial filling defect to suggest pulmonary embolism. There is no linear filling defect within the aorta to suggest aortic dissection. MEDIASTINUM: There is no mediastinal lymphadenopathy by size criteria. ROBERT: There is no hilar lymphadenopathy by size criteria. AIRWAY AND ESOPHAGUS: The airway is unremarkable, without endobronchial filling defect. The esophagus is grossly normal. LUNG PARENCHYMA: The lungs are clear. PLEURA: No pleural abnormalities are noted. UPPER ABDOMEN: There is postsurgical change to the upper GI tract. BONES AND SOFT TISSUES: Degenerative changes are noted along the spine. OTHER: None. IMPRESSION: NO PULMONARY ARTERIAL FILLING DEFECT TO SUGGEST PULMONARY EMBOLISM.
[2017-06-15 15:00] VITALS: BP 174/98
--- NOTE | 2017-06-15 18:56 | ED ---
Ricky Rodriguez Jennifer, scribed for Ronald Lamb MD on 06/15/17 at 0951 . HPI Chest Pain - HPI Summary HPI Summary: The pt is a 66 year old male who presents to the ED with chest pain that began yesterday. Pt reports the pain is mid sternal and radiates to his left arm. Pt reports the pain feels like he is being hit with a hammer. The pain is constant but the severity increases and decreases. It is aggravated upon palpation. Pt reports pain was initially a 6/10, decreased to 2/10 yesterday, increased to 10/10 at 03:00, and is now a 5/10 in the ED. Pt additionally complains of severe headache in the back of his head that feels like when he had a mini-stroke two weeks ago. - History of Current Complaint Chief Complaint: EDChestPainROMI Time Seen by Provider: 06/15/17 09:27 Hx Obtained From: Patient Onset/Duration: Started Days Ago - Began yesterday, Still Present Timing: Constant Initial Severity: Moderate Current Severity: Moderate Pain Intensity: 5 Pain Scale Used: 0-10 Numeric Chest Pain Location: Mid Sternal Chest Pain Radiates: Yes Chest Pain Radiates To:: Shoulder - Left, Arm - Left Character: Other: - "hit by a hammer" Aggravating Factor(s): Other: - Palpation Alleviating Factor(s): Nothing Associated Signs and Symptoms: Positive: Other: - severe headache. NEGATIVE: nausea - Additional Pertinent History Primary Care Physician: [id number] - Allergy/Home Medications Allergies/Adverse Reactions: Allergies Allergy/AdvReac Type Severity Reaction Status Date / Time No Known Allergies Allergy Verified 05/15/17 16:27 Home Medications: Home Medications Clopidogrel TAB* [Plavix TAB*] 75 mg PO DAILY 06/15/17 [History Confirmed ] Ferrous Sulfate TAB* 325 mg PO QAM 06/15/17 [History Confirmed 06/15/17] Lisinopril TAB* [Prinivil TAB*] 5 mg PO DAILY 06/15/17 [History Confirmed ] Magnesium Oxide TAB* [MagOx 400 TAB*] 800 mg PO QPM 06/15/17 [History Confirmed 06/15/17] Multivitamins/Minerals TAB* [Theragran/minerals TAB*] 1 tab PO DAILY 06/15/17 [ History Confirmed 06/15/17] PMH/Surg Hx/FS Hx/Imm Hx Endocrine/Hematology History: Reports: Hx Anemia Cardiovascular History: Denies: Hx Hypertension, Hx Pacemaker/ICD Respiratory History: Reports: Hx Pulmonary 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- FILTER PLACED RIGHT [id number] SINCE GI History: Reports: Hx Gastroesophageal Reflux Disease - RESOLVED WITH WEIGHT LOSS Musculoskeletal History: Reports: Hx Arthritis - LEFT SHOULDER, ELBOW- RIGHT ARM , KNEES ANKLES, NECK Sensory History: Reports: Hx Contacts or Glasses - READING GLASSES Denies: Hx Hearing Aid Opthamlomology History: Reports: Hx Contacts or Glasses - READING GLASSES Neurological History: Reports: Hx Headaches Psychiatric History: Reports: Hx Anxiety - controlled with medication, Hx Depression - ON MEDICATION FOR, Other Psychiatric Issues/Disorders - HX OF NERVOUS BREAKDOWN 12 YEARS AGO Denies: Hx Panic Disorder - Surgical History Surgery Procedure, Year, and Place: [id number] ELBOW SURGERIES X 27, LAST ONE [facility]. 2014-RIGHT KNEE REPLACED-[place]. 2013-LEFT KNEE REPLACED- [facility]. 1993-LEFT ANKLE TENDON REPAIR, [place]. 2002 GASTRIC BYPASS, [place]. UMBILICAL HERNIA REPAIR X 5. TONSILLECTOMY A CHAIR,. 2003 LAPAROSCOPIC CHOLECYSTECTOMY, [place]. 2016 LEFT ELBOW FUSION, [facility] Hx Anesthesia Reactions: No Infectious Disease History: No Infectious Disease History: Denies: Traveled Outside the [place] in Last 30 Days - Family History Known Family History: Positive: None, Unknown - Pt denies all family history. - Social History Alcohol Use: None Substance Use Type: Reports: None Smoking Status (MU): Never Smoked Tobacco Review of Systems Positive: Chest Pain Negative: Nausea Positive: Headache All Other Systems Reviewed And Are Negative: Yes Physical Exam - Summary Physical Exam Summary: Appearance: The patient is well-nourished in no acute distress and in no acute pain. Skin: The skin is warm and dry and skin color reflects adequate perfusion. HEENT: ~The head is normocephalic and atraumatic. The pupils are equal and reactive. The conjunctivae are clear and without drainage. ~Nares are patent and without drainage. ~Mouth reveals moist mucous membranes and the throat is without erythema and exudate. ~The external ears are intact. The ear canals are patent and without drainage. The tympanic membranes are intact. Neck: the neck is supple with full range of motion and non-tender. There are no carotid bruits. ~There is no neck vein distension. Respiratory: Tender in sternal area. ~Lungs are clear to auscultation and breath sounds are symmetrical and equal. Cardiovascular: Heart is regular rate and rhythm. ~There is no murmur or rub auscultated. ~~There is no peripheral edema and pulses are symmetrical and equal. Abdomen: The abdomen is soft and non-tender. ~There are normal bowel sounds heard in all four quadrants and there is no organomegaly palpated. Musculoskeletal: There is no back tenderness noted. ~Extremities are non-tender with full range of motion. ~There is good capillary refill. ~There is no peripheral edema or calf tenderness elicited. Neurological: Patient is alert and oriented to person, place and time. ~The patient has symmetrical motor strength in all four extremities. ~Cranial nerves are grossly intact. Deep tendon reflexes are symmetrical and equal in all four extremities. Psychiatric: The patient has an appropriate affect and does not exhibit any anxiety or depression. Triage Information Reviewed: Yes Vital Signs On Initial Exam: Initial Vitals Temp Pulse Resp BP Pulse Ox 98.3 F 57 16 159/97 96 06/15/17 09:28 06/15/17 09:28 06/15/17 09:28 06/15/17 09:28 06/15/17 09:28 Vital Signs Reviewed: Yes Diagnostics - Vital Signs Vital Signs Temp Pulse Resp BP Pulse Ox 06/15/17 09:28 98.3 F 57 16 159/97 96 - Laboratory Lab Results: Lab Results 06/15/17 06/15/17 06/15/17 Range/Units 09:50 09:50 09:50 WBC 3.5 (3.5-10.8) 10^3/ul RBC 4.42 (4.0-5.4) 10^6/ul Hgb 13.3 L (14.0-18.0) g/dl Hct 39 L (42-52) % MCV 89 (80-94) fL MCH 30 (27-31) pg MCHC 34 (31-36) g/dl RDW 14 (10.5-15) % Plt Count 190 (150-450) 10^3/ul MPV 9 (7.4-10.4) um3 Neut % (Auto) 53.8 (38-83) % Lymph % (Auto) 29.7 (25-47) % [place] % (Auto) 11.2 H (0-7) % Eos % (Auto) 4.2 (0-6) % Baso % (Auto) 1.1 (0-2) % Absolute Neuts (auto) 1.9 (1.5-7.7) 10^3/ul Absolute Lymphs (auto) 1.0 (1.0-4.8) 10^3/ul Absolute Monos (auto) 0.4 (0-0.8) 10^3/ul Absolute Eos (auto) 0.1 (0-0.6) 10^3/ul Absolute Basos (auto) 0 (0-0.2) 10^3/ul Absolute Nucleated RBC 0 10^3/ul Nucleated RBC % 0 INR (Anticoag Therapy) 0.86 (0.77-1.02) D-Dimer, Quantitative 396 H (Less Than 230) ng/mL Sodium 139 (133-145) mmol/L Potassium 4.0 (3.5-5.0) mmol/L Chloride 104 (101-111) mmol/L Carbon Dioxide 32 (22-32) mmol/L Anion Gap 3 (2-11) mmol/L BUN 14 (6-24) mg/dL Creatinine 0.78 (0.67-1.17) mg/dL Est GFR ( Amer) 128.9 (>60) Est GFR (Non-Af Amer) 100.2 (>60) BUN/Creatinine Ratio 17.9 (8-20) Glucose 101 H (70-100) mg/dL Lactic Acid (0.5-2.0) mmol/L Calcium 9.3 (8.6-10.3) mg/dL Total Bilirubin 0.50 (0.2-1.0) mg/dL AST 16 (13-39) U/L ALT 12 (7-52) U/L Alkaline Phosphatase 135 H (34-104) U/L Total Creatine Kinase 51 (10-223) U/L Troponin I 0.00 (<0.04) ng/mL Total Protein 6.5 (6.4-8.9) g/dL Albumin 3.8 (3.2-5.2) g/dL Globulin 2.7 (2-4) g/dL Albumin/Globulin Ratio 1.4 (1-3) 06/15/17 06/15/17 Range/Units 09:50 12:52 WBC (3.5-10.8) 10^3/ul RBC (4.0-5.4) 10^6/ul Hgb (14.0-18.0) g/dl Hct (42-52) % MCV (80-94) fL MCH (27-31) pg MCHC (31-36) g/dl RDW (10.5-15) % Plt Count (150-450) 10^3/ul MPV (7.4-10.4) um3 Neut % (Auto) (38-83) % Lymph % (Auto) (25-47) % [place] % (Auto) (0-7) % Eos % (Auto) (0-6) % Baso % (Auto) (0-2) % Absolute Neuts (auto) (1.5-7.7) 10^3/ul Absolute Lymphs (auto) (1.0-4.8) 10^3/ul Absolute Monos (auto) (0-0.8) 10^3/ul Absolute Eos (auto) (0-0.6) 10^3/ul Absolute Basos (auto) (0-0.2) 10^3/ul Absolute Nucleated RBC 10^3/ul Nucleated RBC % INR (Anticoag Therapy) (0.77-1.02) D-Dimer, Quantitative (Less Than 230) ng/mL Sodium (133-145) mmol/L Potassium (3.5-5.0) mmol/L Chloride (101-111) mmol/L Carbon Dioxide (22-32) mmol/L Anion Gap (2-11) mmol/L BUN (6-24) mg/dL Creatinine (0.67-1.17) mg/dL Est GFR ( Amer) (>60) Est GFR (Non-Af Amer) (>60) BUN/Creatinine Ratio (8-20) Glucose (70-100) mg/dL Lactic Acid 1.0 (0.5-2.0) mmol/L Calcium (8.6-10.3) mg/dL Total Bilirubin (0.2-1.0) mg/dL AST (13-39) U/L ALT (7-52) U/L Alkaline Phosphatase (34-104) U/L Total Creatine Kinase (10-223) U/L Troponin I 0.00 (<0.04) ng/mL Total Protein (6.4-8.9) g/dL Albumin (3.2-5.2) g/dL Globulin (2-4) g/dL Albumin/Globulin Ratio (1-3) Result Diagrams: 06/15/17 09:50 06/15/17 09:50 Lab Statement: Any lab studies that have been ordered have been reviewed, and results considered in the medical decision making process. - Radiology CXR Xray Interpretation: No Acute Changes - NO ACTIVE CARDIOLPULMONARY DISEASE IS NOTED. Dr. Lamb has reviewed this report. Radiology Interpretation Completed By: Radiologist - CT Chest/Thorax CTA CT Interpretation: No Acute Changes - NO PULMONARY ARTERIAL FILLING DEFECT TO SUGGEST PULMONARY EMBOLISM. Dr. Lamb has reviewed this report. CT Interpretation Completed By: Radiologist - EKG 09:26 Cardiac Rate: Bradycardia EKG Rhythm: Sinus Bradycardia - 52 BPM EKG Interpretation: 1st degree AV block, left axis deviation, left anterior fascicular block Chest Pain Course/Dx - Course Course Of Treatment: Mr. Camilo presented with CP that was reproducible. He has had a recent TIA. His W/U was negative including two trops except for a mildy elevated d-dimer. CTA was negative. This seems like a musculoskeletal CP to me and I will send him for close F/U. - Diagnoses Provider Diagnoses: Chest pain Discharge - Discharge Plan Condition: Stable Disposition: HOME Patient Education Materials: Chest Pain (ED) Referrals: Gasper IGELSIAS,Ronald Goddard [Primary Care Provider] - 3 Days Additional Instructions: Follow up with your primary care physician in several days. Return to the emergency department for any new or worsening symptoms. The documentation as recorded by the Ricky dunn Jennifer accurately reflects the service I personally performed and the decisions made by , Ronald Labm MD.
== END 2017-06-15 14:58 | disposition home or self-care (01) ==
LOC: ED 09:24
DX: R07.9 Chest pain, unspecified (principal); Z86.73 Personal history of transient ischemic attack (TIA), and cerebral infarction without residual deficits
CPT/HCPCS: 36415; 71045; 71275; 80053; 82550; 83605; 84484; 85025; 85379; 85610; 93005; 99283; Q9967